=== PATIENT | female | born 1975 | race African-American/Black ===

== ENCOUNTER 2020-06-04 14:07 | Emergency (ER) | payer SELFPAY ==
[~2020-06-04] VITALS: Ht 157.5 cm; Wt 63.5 kg
--- NOTE | 2020-06-04 14:49 | Emergency Department Note ---
History of Present Illnes History of Present Illness Chief Complaint: General Medicine Complaints History of Present Illness This is a 44 year old female Chief Complaint Comment pt came in via POV for evaluation of foreign body ingestion, pt states that she swallowed a barbell tongue ring 2 hrs [employer], pt states that she feels the jewelry in her throat when she tries to swallow Historian: Patient Arrival Mode: Car Acid Patroller Required: No Onset (how long ago): hour(s) (2) Location: Esophagus Quality: sharp Radiation: Reports non-radiation Severity: mild Onset quality: sudden Duration (how long): hour(s) (2) Timing of current episode: constant Progression: unchanged Chronicity: new Context: Denies recent illness, Denies recent surgery Relieving factors: none Exacerbating factors: none Associated symptoms: Reports denies other symptoms Treatments prior to arrival: none Past Medical/Family History Physician Review I have reviewed the patient's past medical and family history. Any updates have been documented here. Past Medical History Recent Fever: No Clinical Suspicion of Infectio: No New/Unexplained Change in Ment: No Past Medical History: None Other Surgery: Gastric Bypass Other Any Pre-Existing Lines (PICC,: No Review of Systems Review of Systems Constitutional: Reports no symptoms EENTM: Reports no symptoms Cardiovascular: Reports no symptoms Respiratory: Reports no symptoms Gastrointestinal: Reports as per HPI Genitourinary: Reports no symptoms Musculoskeletal: Reports no symptoms Integumentary: Reports no symptoms Neurological: Reports no symptoms Psychological: Reports no symptoms Endocrine: Reports no symptoms Hematological/Lymphatic: Reports no symptoms Physical Exam Related Data Allergies: Coded Allergies: No Known Allergies (Unverified , 06/04/20) Triage Vital Signs Vital Signs Date Time Temp Pulse Resp B/P (MAP) Pulse Ox O2 Delivery O2 Flow Rate FiO2 06/04/20 14:14 97.5 125 20 164/90 99 Room Air Vital signs reviewed: Yes Physical Exam CONSTITUTIONAL Constitutional: Present well-developed, Present well-nourished HENT HENT: Present normocephalic, Present atraumatic, Present oropharynx clear/moist, Present nose normal HENT L/R: Present left ext ear normal, Present right ext ear normal EYES Eyes: Reports PERRL, Reports conjunctivae normal NECK Neck: Present ROM normal PULMONARY Pulmonary: Present effort normal, Present breath sounds normal CARDIOVASCULAR Cardiovascular: Present regular rhythm, Present heart sounds normal, Present capillary refill normal, Present normal rate GASTROINTESTINAL Abdominal: Present soft, Present nontender, Present bowel sounds normal GENITOURINARY Genitourinary: Present exam deferred SKIN Skin: Present warm, Present dry MUSCULOSKELETAL Musculoskeletal: Present ROM normal NEUROLOGICAL Neurological: Present alert, Present oriented x 3, Present no gross motor or sensory deficits PSYCHOLOGICAL Psychological: Present mood/affect normal, Present judgement normal Results Imaging Imaging results reviewed: Yes Assessment & Plan Medical Decision Making MDM 44 y.o F presents for swallowing tongue ring. No signs of resp distress. She is able to tolerate oral secretions. X-rays show no retained FB. Discussed results with Pt and will Dc home. Assessment & Plan Final Impression: (1) Sensation of foreign body in esophagus Depart Disposition: HOME, SELF-CARE Last Vital Signs Date Time Temp Pulse Resp B/P (MAP) Pulse Ox O2 Delivery O2 Flow Rate FiO2 06/04/20 14:14 97.5 125 20 164/90 99 Room Air MYRANDA MELENDEZ MD Jun 04, 2020 14:49
--- NOTE | 2020-06-04 15:52 | Diagnostic Imaging Report ---
EXAMINATION: CHEST SINGLE (PORTABLE), ABDOMEN-1VIEW (KUB), NECK SOFT TISSUE INDICATION: Ingested foreign body COMPARISON: None FINDINGS: NECK: No radiopaque foreign body. Prevertebral soft tissues are normal in thickness. Mild degenerative changes of the cervical spine. LINES/TUBES:None LUNGS:The lungs are well-inflated. No focal consolidation or pulmonary edema. PLEURA:No pleural effusion or pneumothorax. MEDIASTINUM:The cardiomediastinal silhouette appears normal in size and shape. BONES/SOFT TISSUES:No acute osseous injury. ABDOMEN:Nonobstructive bowel gas pattern. No free air. Cholecystectomy clips in the right upper quadrant. Surgical chain sutures in the region of the gastroesophageal junction and in the right lower quadrant. No metallic foreign body. IMPRESSION: No metallic foreign body. Clear lungs. Nonobstructive bowel gas pattern. No free air. Signed by: Gallo Irvin MD on 06/04/2020 3:49 PM
== END 2020-06-04 17:22 | disposition home or self-care (01) ==
LOC: ER 14:51
DX: R09.89 Other specified symptoms and signs involving the circulatory and respiratory systems (principal)
CPT/HCPCS: 70360; 71045; 74018; 99283